=== PATIENT | male | born 1935 | race Asian ===

== ENCOUNTER 2016-09-01 00:36 | Observation (INO) | payer MEDICARE, OTHER ==
[~2016-09-01] VITALS: Ht 160 cm; Wt 66.2 kg
[2016-09-01] VITALS (7 sets, daily range): BP systolic 119–189; BP diastolic 60–79
[~2016-09-01 00:36] MED LIST: LANTUS SOL100 UNIT/1 SUBQ
[2016-09-01] MEDS ORDERED: Aspirin Baby 81mg ORAL ONE (00:45)
[2016-09-01] MEDS ORDERED: Pantoprazole Inj IVP ONE (00:45)
[2016-09-01 00:54] LABS: EOSINOPHILS % (AUTO) 2.1 % (0.0-3.0); LYMPHOCYTES % (AUTO) 22.7 % (20.0-45.0); MEAN CORPUSCULAR HEMOGLOBIN 31.9 PG (27.0-31.0); MEAN CORPUSCULAR HGB CONC 33.9 G/DL (32.0-36.0); MEAN CORPUSCULAR VOLUME 94 FL (80-99); MEAN PLATELET VOLUME 8.4 FL (6.5-10.1); MONOCYTES % (AUTO) 6.1 % (1.0-10.0); PLATELET COUNT 324 K/UL (150-450); RED BLOOD COUNT 4.98 M/UL (4.70-6.10); RED CELL DISTRIBUTION WIDTH 11.1 % (11.6-14.8); WHITE BLOOD COUNT 12.8 K/UL (4.8-10.8)
[2016-09-01 01:13] LABS: ALANINE AMINOTRANSFERASE 14 U/L (3-41); ALBUMIN/GLOBULIN RATIO 1.5 (1.0-2.7); ANION GAP 14 (5-15); ASPARTATE AMINO TRANSFERASE 14 U/L (5-40); CALCIUM 8.9 mg/dL (8.6-10.2); CARBON DIOXIDE 28 mEQ/L (20-30); CHLORIDE 96 mEQ/L (98-107); CREATININE 1.3 mg/dL (0.7-1.2); HEMOLYSIS 4; POTASSIUM 3.9 mEQ/L (3.4-4.9); SODIUM 138 mEQ/L (135-145); TOTAL PROTEIN 7.1 g/dL (6.6-8.7)
[2016-09-01 01:15] LABS: TROPONIN I < 0.30 ng/mL (<=0.30)
[2016-09-01 01:24] LABS: CKMB < 1.5 ng/mL (< 6.7)
[2016-09-01] MEDS ORDERED: Nitroglycerin Subl 0.4mg tab (Bottle Of 25) SL ONE (01:45)
[2016-09-01 02:18] LABS: APPEARANCE,URINE CLEAR; KETONES,URINE NEGATIVE (NEGATIVE); LEUKOCYTE ESTERASE ,URINE NEGATIVE (NEGATIVE); NITRITE,URINE NEGATIVE (NEGATIVE); PH,URINE 8 (4.5-8.0); PROTEIN,URINE NEGATIVE (NEGATIVE); UROBILINOGEN,URINE NORMAL MG/DL (0.0-1.0)
[2016-09-01] MEDS ORDERED: Morphine Sulfate 4mg/ml Inj IVP ONE (02:30)
--- NOTE | 2016-09-01 02:49 | Emergency Room Report ---
History of Present Illness General Chief Complaint: General Complaint Source: Patient, EMS Present Illness HPI Is an 81 year-old Serbian male who has a history diabetes on Lantus. He has no history of hypertension. He presents with chief complaint of "indigestion." Onset about 4 hours prior to arrival. Localized to the epigastric area. Described as burning and sharp sensation. No short breath. No diaphoresis. No radiation. No nausea no vomiting. No social component. He came by EMS. Allergies: Coded Allergies: No Known Allergies (Unverified , 09/01/16) Patient History Past Medical History: see triage record, old chart reviewed, DM Past Surgical History: other Pertinent Family History: none Social History: Denies: smoking Immunizations: other Reviewed Nursing Documentation: PMH: Agreed, PSxH: Agreed Nursing Documentation-PMH Hx Hypertension: Yes Hx Diabetes: Yes Review of Systems Eye: Denies: blurred vision, eye pain ENT: Denies: ear pain, nose congestion, throat swelling Respiratory: Denies: cough, shortness of breath Cardiovascular: Denies: chest pain, palpitations Gastrointestinal: Reports: abdominal pain, Denies: diarrhea, nausea, vomiting Musculoskeletal: Denies: back pain, joint pain Skin: Denies: rash Neurological: Denies: headache, numbness Endocrine: Denies: increased thirst, increased urine Hematologic/Lymphatic: Denies: easy bruising All Other Systems: negative except mentioned in HPI Physical Exam Vital Signs Date Time Temp Pulse Resp B/P Pulse Ox O2 Delivery O2 Flow Rate FiO2 09/01/16 00:22 98.2 66 16 210/75 96 Room Air vitals with hypertension Sp02 EP Interpretation: reviewed, normal General Appearance: well appearing, alert, mild distress - From pain Head: normocephalic, atraumatic Eyes: bilateral eye EOMI, bilateral eye PERRL ENT: hearing grossly normal, normal pharynx Neck: full range of motion, supple, no meningismus Respiratory: chest non-tender, lungs clear, normal breath sounds Cardiovascular #1: regular rate, rhythm, no murmur Gastrointestinal: normal bowel sounds, non tender, no mass, no organomegaly, no bruit, non-distended Musculoskeletal: back normal, gait/station normal, normal range of motion Psychiatric: mood/affect normal Skin: warm/dry Medical Decision Making Diagnostic Impression: Primary Impression: Chest pain Qualified Codes: R07.9 - Chest pain, unspecified Additional Impressions: Hypertension Qualified Codes: I10 - Essential (primary) hypertension Hyperglycemia due to type 1 diabetes mellitus ER Course Patient presents with epigastric/chest pain. Description the pain is atypical but he has respecter with his age, diabetes and probably undiagnosed hypertension. Blood pressure better now. Pain better. First set of troponin negative. Will admit for further workup. I discussed the case with Dr. Chairez who will admit. Lab Results Impression labs with hyperglycemia EKG Diagnostic Results EKG Time: 02:48 Rate: normal Rhythm: NSR ST Segments: no acute changes Rhythm Strip Diag. Results Rhythm Strip Time: 02:48 EP Interpretation: yes Rate: 65 Rhythm: NSR, no PVC's, no ectopy Chest X-Ray Diagnostic Results Chest X-Ray Ordered: Yes # of Views/Limited/Complete: 1 View Interpretation: no consolidation, no effusion, no pneumothorax, no acute cardiopulmonary disease Indication: Chest Pain Impression: No acute disease Date Electronically Signed: Sep 01, 2016 Time Electronically Signed: 02:49 Interpreting ER Physician: Vlad Youngblood MD Last Vital Signs Date Time Temp Pulse Resp B/P Pulse Ox O2 Delivery O2 Flow Rate FiO2 09/01/16 02:25 98.2 72 17 157/60 96 Room Air Status: improved Disposition: ADMITTED INPATIENT Condition: Serious Referrals: NOT CHOSEN PASCUAL/,REFERRING (PCP) VLAD YOUNGBLOOD M.D. Sep 01, 2016 02:49
[2016-09-01] MEDS ORDERED: ACARBOSE50 MG ORAL (02:54)
[2016-09-01] MEDS ORDERED: LORATADINE10 M2 PO (02:54)
[2016-09-01] MEDS ORDERED: ATORVASTATIN CA20 MG ORAL (02:54)
[2016-09-01] MEDS ORDERED: ASPIR-LOW81 MG ORAL (02:54)
[2016-09-01] MEDS ORDERED: MELOXICAM7.5 MG PO (02:54)
[2016-09-01] MEDS ORDERED: RAPAFLO8 MG ORAL (02:54)
[2016-09-01] MEDS ORDERED: DEXILANT30 MG ORAL (02:54)
[2016-09-01] MEDS ORDERED: Nitroglycerin Subl 0.4mg tab (Bottle Of 25) SL PRN (07:15)
[2016-09-01] MEDS: Milk of Magnesia 30ml Ud ORAL PRN ×2 (08:50→09:05)
[2016-09-01] MEDS: Heparin 5000 units/ml inj SUBQ SCH ×2 (08:53→20:36)
[2016-09-01] MEDS ORDERED: Levemir Flexpen SUBQ SCH (09:00)
[2016-09-01] MEDS: Aspirin EC 81mg tab ORAL SCH (09:05)
[2016-09-01 09:12] LABS: TROPONIN I < 0.30 ng/mL (<=0.30)
[2016-09-01 09:24] LABS: ANION GAP 14 (5-15); CALCIUM 8.8 mg/dL (8.6-10.2); CARBON DIOXIDE 25 mEQ/L (20-30); CHLORIDE 99 mEQ/L (98-107); CHOLESTEROL 152 mg/dL (< 200); CHOLESTEROL/HDL RATIO 4.1 (3.3-4.4); CREATININE 1.1 mg/dL (0.7-1.2); HEMOLYSIS 7; LDL CHOLESTEROL (CALC.) 84 mg/dL (60-99); SODIUM 138 mEQ/L (135-145)
--- NOTE | 2016-09-01 09:26 | Diagnostic Imaging Report ---
Indications: Chest pain Technique: Portable AP chest Findings: Comparison: None Linear density left midlung. Hazy density, separate small calcified nodular density left lung base. Right lung clear. Heart size, pulmonary vasculature within normal limits. Left costophrenic angle mildly indistinct; right sharp. Aortic arch calcified. Disc marginal osteophytes lower cervical spine. IMPRESSION: Focal hazy opacity left lung base most likely atelectatic. Early pneumonia not excludable. Upright PA and lateral chest radiographs with better inspiratory effort and optimal technique recommended for more complete evaluation. Adjacent small pleural effusion not excludable Suggestion of small calcified granuloma left lung base Subsegmental atelectasis versus scarring left midlung Aortosclerosis Cervical degenerative spondylosis
[2016-09-01] MEDS: NovoLOG Insulin Flexpen SUBQ SCH ×2 (11:30→16:58)
[2016-09-01] MEDS: Precose 50mg tab ORAL SCH ×2 (12:00→16:58)
[2016-09-01] MEDS ORDERED: Adenosine Inj IVP ONE (13:30)
[2016-09-01 14:20] LABS: TROPONIN I < 0.30 ng/mL (<=0.30)
--- NOTE | 2016-09-01 17:00 | History and Physical Report ---
DATE OF ADMISSION: 09/01/2016 CHIEF COMPLAINT/REASON FOR HOSPITALIZATION: The patient admitted for chest pain. HISTORY OF PRESENT ILLNESS: The patient is an 81-year-old Urdu [place] Islander man who presents with chest pain. He has diabetes on insulin for about 10 years ago. The patient apparently has had at least two falls in the last one to two weeks and has had some right rib pain and also some left rib pain. He has a history of likely diabetic neuropathy. He had syncope about two months ago. The patient has a history of BPH, osteoarthritis, allergic rhinitis, and hyperlipidemia. There is no history of coronary events. Chest pain is of recent onset. SURGERIES: Appendectomy and left eye cataract. MEDICATIONS: Home medications include Lantus 28 units b.i.d., Dexilant, Rapaflo, gabapentin, meloxicam, atorvastatin, loratadine, fenofibrate, aspirin and acarbose. He is not clear on the exact dosing. ALLERGIES: None known. HABITS: He was a smoker about a half a pack a day, most of his adult life until 1991 when he quit. Alcohol occasional. Drugs, none. 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 REVIEW OF SYSTEMS: HEENT: He continues to have decreased visual acuity in his left eye. Hearing is good. Endocrine: History of diabetes. No known thyroid disease. Pulmonary: No asthma, TB, chronic cough, or shortness of breath. Cardiac: See history of present illness. No history of CHF, arrhythmias or coronary events. Gastrointestinal: No gastrointestinal bleeding or ulcers. He has some dyspepsia and has been on Dexilant. Genitourinary: He has a BPH with a decreased stream of urine. Nocturia two or three times. Musculoskeletal: History of mild generalized arthritis. Neurologic: No stroke or seizure. He has some neuropathy. PHYSICAL EXAMINATION: GENERAL: The patient is alert and well-developed man, looks younger than his stated age. She is seen with a nurse, who is a Urdu back filler operator. VITAL SIGNS: Temperature 98.2 degrees, pulse 69, respirations 20, and O2 saturation is 94%. HEENT: Sclerae are nonicteric. Ocular motions intact in all directions. Oral mucosa moist. NECK: No adenopathy or thyroid enlargement. LUNGS: Clear. CHEST: There is a pain patch on the right lateral chest tube. He has some right lateral and left anterior rib tenderness, mild. HEART: Regular rhythm. No murmurs, gallop or rub. ABDOMEN: Soft. No organomegaly or masses. EXTREMITIES: No edema, cyanosis or clubbing. No swollen joints. NEUROLOGIC: The patient alert and oriented. Cranial nerves are intact. There is a questionable facial asymmetry and moves all extremities equally. LABORATORY AND DIAGNOSTIC DATA: A chest x-ray shows some atelectasis left base. His white count 12.8 and hemoglobin 15.9. Sodium 130, potassium 5, BUN 12 and creatinine 1.1. Troponin x2 is normal. The cholesterol 152, triglycerides 156, and HDL was 37. IMPRESSION: 1. Chest pain, possible acute coronary syndrome, possible non-coronary pain. In view of history of recent falls, pain could be due to the rib contusions, possibly from atelectasis, possibly from gastroesophageal reflux. 2. Insulin-dependent diabetes. 3. History of gastroesophageal reflux on Dexilant. 4. Diabetes with possible peripheral neuropathy. 5. History of hyperlipidemia. 6. History of benign prostatic hypertrophy. PLAN: The patient had two negative troponins and a stress test has been ordered and pending. We will give him comfort measures. Continue him on anti-ischemic therapy and await results of stress test. Gadiel Chairez M.D. DR: FELY JOB#: [id number] CC:
[2016-09-01] MEDS ORDERED: Atorvastatin 20mg tab ORAL SCH (21:00)
[2016-09-01] MEDS ORDERED: Tamsulosin 0.4mg cap ORAL SCH (21:00)
[2016-09-01] MEDS: Levemir Flexpen SUBQ SCH (21:05)
[2016-09-02] VITALS: BP 148/70
--- NOTE | 2016-09-02 00:15 | Consultation ---
DATE OF CONSULTATION: 09/01/2016 CARDIOLOGY CONSULTATION REQUESTING PHYSICIAN: Gadiel Chairez M.D. REASON FOR CONSULTATION: Chest pain. HISTORY OF PRESENT ILLNESS: This is an 81-year-old Luxembourgish male, who has no history of prior cardiovascular disease, but has several risk factors for premature coronary disease including insulin-requiring diabetes mellitus. The patient has had several falls over the past week injuring his chest wall, but denying loss of consciousness. Two months ago, however, he does admit to a syncopal episode. The patient presented to the hospital for evaluation of chest pain. PAST MEDICAL HISTORY: Hyperlipidemia, prostatic hypertrophy, insulin-requiring diabetes mellitus, allergic rhinitis, osteoarthritis, status post appendectomy, status post left cataract surgery and diabetic neuropathy. ALLERGIES: None. SOCIAL HISTORY: Former smoker. Half pack per day for most of his adult life till 1991. No alcohol or substance abuse. He is a retired factory assembler. MEDICATIONS: Reviewed and reconciled. REVIEW OF SYSTEMS: Somewhat distended decreased visual acuity. No loss of hearing. He uses insulin for his diabetes. There is no history of thyroid disorder. He is on anti-lipid drugs. There is no history of asthma or blood clots in the legs. He denies history of rheumatic heart disease, palpitations, irregular heartbeats, or high blood pressure. He does have some dyspepsia. He takes Dexilant. He has nocturia two to three times at night and takes Rapaflo for his BPH. He has mild arthritis, but no limitations in function. There is no history of seizure or stroke. He does have some neuropathic symptoms of the distal extremities. PHYSICAL EXAMINATION: GENERAL: The patient is a well-developed, well nourished, in no distress. Afebrile. VITAL SIGNS: Blood pressure 134/60, pulse 69, and respirations 20. HEENT: Conjunctiva pink. Sclerae are anicteric. Oropharynx is clear. NECK: Supple. Jugular venous pressure normal. LUNGS: Clear. CARDIAC: Regular rhythm and rate. Normal S1 and S2. No murmur, rub, or gallop. There is a pain patch on the right lateral chest wall with tenderness over the right lateral and left anterior rib region. ABDOMEN: Soft. EXTREMITIES: Without edema. NEUROLOGIC: Nonfocal. LABORATORY AND DIAGNOSTIC DATA: Chest x-ray reveals atelectasis at the left base. Otherwise unremarkable. White count 12.8 and hemoglobin 15.9. BUN 12 and creatinine 1.1. HDL 37 and LDL 144. Troponin is negative. Sodium 130 and potassium 5. IMPRESSION: 1. Acute coronary syndrome. 2. Possible musculoskeletal rib pain from contusion. 3. History of syncope x1. 4. Insulin-requiring diabetes mellitus with neuropathy. 5. Hyperlipidemia on anti-lipid drugs. 6. Mild hyponatremia. PLAN: 1. Analgesics. 2. Anti-platelet. 3. Anti-lipids. 4. Cardiac monitoring. 5. Serial troponins. 6. Exercise myocardial perfusion scan to follow. 7. Consider further imaging of the chest wall if stress test is unrevealing. 8. We will obtain echocardiogram to assess further for structural heart disease in view of his syncopal episode and check orthostatics. Drake Aldana M.D. DR: AURA JOB#: [id number] CC:
[2016-09-02 00:23] VITALS: BP 148/70
[2016-09-02 03:55] VITALS: BP 150/64
[2016-09-02] MEDS: Precose 50mg tab ORAL SCH ×3 (05:37→16:25)
[2016-09-02 06:23] LABS: ALANINE AMINOTRANSFERASE 19 U/L (3-41); ANION GAP 17 (5-15); ASPARTATE AMINO TRANSFERASE 20 U/L (5-40); CARBON DIOXIDE 21 mEQ/L (20-30); CHLORIDE 100 mEQ/L (98-107); CREATININE 1.2 mg/dL (0.7-1.2); HEMOLYSIS 8; POTASSIUM 4.1 mEQ/L (3.4-4.9); SODIUM 138 mEQ/L (135-145); TOTAL PROTEIN 6.7 g/dL (6.6-8.7)
[2016-09-02 08:00] VITALS: BP 160/73
[2016-09-02] MEDS: Aspirin EC 81mg tab ORAL SCH (09:31)
[2016-09-02] MEDS: NovoLOG Insulin Flexpen SUBQ SCH ×2 (09:32→13:32)
[2016-09-02] MEDS: Levemir Flexpen SUBQ SCH (09:33)
[2016-09-02] MEDS: Heparin 5000 units/ml inj SUBQ SCH (09:36)
[2016-09-02] MEDS ORDERED: Adenosine Inj IVP ONE (10:00)
[2016-09-02 12:00] VITALS: BP 153/66
[2016-09-02] MEDS ORDERED: Lisinopril 20mg tab ORAL ONE (13:00)
[2016-09-02 15:56] VITALS: BP 131/63
--- NOTE | 2016-09-02 15:56 | Diagnostic Imaging Report ---
Indications: Chest pain Technique: Single day single isotope protocol utilized. Initially, resting images obtained using IV administration 9.4 millicuries 99M technetium Myoview. Subsequently, patient underwent adenosine stress testing. See cardiology report for details. During adenosine infusion, IV administration 28.8 mCi 99 M technetium Myoview. SPECT and planar images obtained. SPECT images gated to 8 phases of the cardiac cycle were also obtained, and reformatted into cine images for evaluation of ejection fraction. Comparison: None Findings: Per cardiology report, patient experienced flushing. Per cardiology report, resting EKG demonstrates normal sinus rhythm with abnormal axis. No ST changes were recorded during infusion. Imaging demonstrates normal post stress perfusion, no fixed nor reversible perfusion defects. Normal cardiac chamber size. Calculated post stress ejection fraction 83%. No focal wall motion abnormality Impression: Nonischemic clinical response to pharmacologic stress, per cardiology report Nonischemic electrocardiographic response to pharmacologic stress, per cardiology report No imaging findings to suggest ischemia, at level of stress achieved. Calculated post stress ejection fraction greater than 70%
--- NOTE | 2016-09-02 20:15 | Progress Note ---
DATE: 09/02/2016 HISTORY OF PRESENT ILLNESS: The patient has no chest pain. He notes abdominal discomfort. He feels weak. Monitored rhythm is sinus. Troponin is negative. EKG sinus rhythm with no acute abnormality, rightward axis noted only. PHYSICAL EXAMINATION: VITAL SIGNS: Blood pressure 154/86 , heart rate 94, respiratory rate 18, oxygen saturation on room air 94 to 98%. LUNGS: Clear. CARDIAC: Regular. Normal S1 and S2. ABDOMEN: Soft. No edema. LABORATORY DATA: TSH is normal. IMPRESSION: 1. Chest wall pain. 2. Possible acute coronary syndrome. 3. Multiple risk factors for accelerated coronary artery disease and atherosclerosis including diabetes mellitus and hypertension as well as hyperlipidemia. PLAN: 1. Myocardial perfusion scan today. 2. Continue insulin titration. 3. Cardiac monitoring. 4. Anti-platelet and anti-lipid drugs. 5. Add angiotensin-converting enzyme inhibitor. Drake Aldana M.D. DR: AMBER JOB#: [id number] CC: DARIO
--- NOTE | 2016-09-03 04:00 | Discharge Summary ---
DATE OF ADMISSION: 09/01/2016 DATE OF DISCHARGE: 09/02/2016 PERTINENT HISTORY: The patient is an 81-year-old man, who presents for evaluation of chest pain. He has a history of diabetes, on insulin. He had two falls in the last few weeks and some right and left rib pain. He also has diabetic neuropathy, history of gastritis, BPH, and osteoarthritis. PERTINENT PHYSICAL FINDINGS: See dictated History and Physical for details. LUNGS: Clear. He has some right and left lateral anterior rib tenderness. HEART: Regular rhythm. No murmur. ABDOMEN: Soft without organomegaly. EXTREMITIES: No edema. COURSE IN THE HOSPITAL: The patient was observed for possible acute coronary syndrome. Troponins were negative. He subsequently underwent nuclear medicine stress test that was negative for ischemia. He also had a 2D echocardiogram showing LVEF of 60%, mild left ventricular hypertrophy, mild mitral regurgitation, mild diastolic dysfunction, and mild pulmonary hypertension. On further review of the patient, his chest pain improved. It did not appear that pain is due to chest contusion from falling. The patient was notified of the above results and he was discharged home in stable condition. FINAL DIAGNOSES: 1. Acute coronary syndrome. 2. Chest wall contusions. 3. Recent falls. 4. Insulin-dependent diabetes. 5. Hypertensive heart disease. 6. History of gastritis. DISCHARGE DISPOSITION: Home on a diabetic diet. DISCHARGE MEDICATIONS: Per the discharge medication list. FOLLOWUP: Follow up by his prior physician. Always welcomed to come to the office of Dr. Chairez as needed. Gadiel Chairez M.D. DR: Hola JOB#: [id number] CC:
[2016-09-03] MEDS ORDERED: Lisinopril 20mg tab ORAL SCH (09:00)
--- NOTE | 2016-09-05 20:28 | Cardiology Report ---
APPROVED REPORT EKG Measurement Heart [id number] Normal sinus rhythm Rightward axis Borderline ECG
--- NOTE | 2016-09-09 19:14 | Cardiology Report ---
APPROVED REPORT EKG Measurement Heart [id number] Normal sinus rhythm Normal ECG
--- NOTE | 2016-09-12 08:09 | Cardiology Report ---
APPROVED REPORT EXAM: Two-dimensional and M-mode echocardiogram with Doppler and color Doppler. INDICATION Abdominal pain M-Mode DIMENSIONS IVSd0.9 (0.7-1.1cm)Left Atrium (MM)2.7 (1.6-4.0cm) LVDd2.7 (3.5-5.6cm)Aortic Root3.6 (2.0-3.7cm) PWd1.4 (0.7-1.1cm)Aortic Cusp Exc.1.7 (1.5-2.0cm) LVDs1.6 (2.5-4.0cm) PWs1.0 cm Normal left ventricular chamber size, systolic function and wall motion. Left ventricular ejection fraction estimated to be 60 %. Mild left ventricular hypertrophy by 2-D. Anterior Echo-free space, may be due to pericardial fat or effusion. All other cardiac chamber sizes are within normal limits. Focal aortic valve sclerosis with adequate cusp excursion. Thickened mitral valve leaflets with normal excursion. Mitral annulus and aortic root calcification. Pulmonic valve not well visualized. Normal tricuspid valve structure. IVC at normal size with physiologic collapse. A color flow and spectral Doppler study was performed and revealed: Trace mitral regurgitation. Mitral diastolic velocities suggest reduced left ventricular relaxation c/w mild LV diastolic dysfunction (Grade I). Mild tricuspid regurgitation. Tricuspid systolic velocities suggests peak right ventricular systolic pressure of 42 mmHg, consistent with mild pulmonary hypertension.
== END 2016-09-02 18:10 | disposition home or self-care (01) ==
LOC: EDBD 00:36 → EMR 00:50 → INTOOBSV 02:11 → 2E 02:11 → EDBEDREQ 02:28
DX: I24.9 Acute ischemic heart disease, unspecified (principal); I11.9 Hypertensive heart disease without heart failure; S20.212A Contusion of left front wall of thorax, initial encounter; S20.211A Contusion of right front wall of thorax, initial encounter; W19.XXXA Unspecified fall, initial encounter; Y92.89 Other specified places as the place of occurrence of the external cause; Y99.9 Unspecified external cause status; E10.40 Type 1 diabetes mellitus with diabetic neuropathy, unspecified; Z79.4 Long term (current) use of insulin; N40.0 Benign prostatic hyperplasia without lower urinary tract symptoms; M19.90 Unspecified osteoarthritis, unspecified site; K21.9 Gastro-esophageal reflux disease without esophagitis; E78.5 Hyperlipidemia, unspecified; I27.2 Other secondary pulmonary hypertension; I34.0 Nonrheumatic mitral (valve) insufficiency; E87.6 Hypokalemia; J30.9 Allergic rhinitis, unspecified; Z87.19 Personal history of other diseases of the digestive system; Z87.891 Personal history of nicotine dependence; Z90.49 Acquired absence of other specified parts of digestive tract
CPT/HCPCS: 36415 ×2; 71010; 78452; 80048; 80053 ×2; 80061; 81003; 82550; 82553; 82962 ×2; 84443; 84484; 84550; 85025; 93005; 93017; 93306; 99285; A4641; C9113; G0378 ×2; J0153; J0360; J1644 ×2; J1815; J2270; J2405; S5561